=== PATIENT | female | born 1990 | race Caucasian/White ===

== ENCOUNTER 2024-12-08 11:27 | Emergency (ER) | payer OTHER, SELFPAY ==
[2024-12-08 11:29] VITALS: BP 105/71
[2024-12-08 11:51] LABS: % Basophils 0.4 % (0-2); % Eosinophils 0.3 % (0-6); % Immature Granulocytes 0.3 % (0-0.5); % Lymphocytes 5.9 % (20.5-51.1); % Monocytes 3.5 % (1.7-9.3); % Neutrophils 89.6 % (42.2-75.2); Absolute Lymphocytes 0.6 10^3/uL (1.2-3.4); Absolute Monocytes 0.3 10^3/uL (0.1-0.6); Absolute Neutrophils 8.5 10^3/uL (1.4-6.5); Hematocrit 43.1 % (37.0-47.0); Hemoglobin 15.3 g/dL (12.0-16.0); Mean Corp Hgb Conc. 35.5 g/dL (33.0-37.0); Mean Corpuscular Hgb 31.3 pg (27.0-31.0); Mean Corpuscular Volume 88.1 fL (81.0-99.0); Mean Platelet Volume 10.4 fL (7.4-10.4); Nucleated Red Blood Cells % 0 %; Platelet Count 210 10^3/uL (130-400); Red Blood Cell Count 4.89 10^6/uL (4.20-5.40); Red Cell Dist. Width 11.9 % (11.5-14.5); White Blood Cell Count 9.5 10^3/uL (4.8-10.8)
[2024-12-08 12:01] LABS: HCG, Serum Qualitative Screen Negative
[2024-12-08 12:02] LABS: ALT (SGPT) 17 U/L (0-35); AST (SGOT) 28 U/L (14-36); Albumin 4.7 g/dl (3.5-5.0); Alkaline Phosphatase 62 U/L (38-126); Blood Urea Nitrogen 8 mg/dl (7-17); Calcium 9.9 mg/dl (8.4-10.2); Carbon Dioxide 27 mmol/L (22-30); Chloride 106 mmol/L (98-107); Glucose 107 mg/dl (70-99); Lipase 55 U/L (23-300); Potassium 4.5 mmol/L (3.5-5.1); Sodium 141 mmol/L (135-145); Total Bilirubin 0.8 mg/dl (0.2-1.3); Total Protein 7.1 g/dl (6.3-8.2); eGFR > 60.00
--- NOTE | 2024-12-08 12:48 | ED.GENMED ---
History of Present Illness
General
Chief Complaint: Abdominal Pain
Source: patient
Exam Limitations: none
Time Seen by Provider: 12/08/24 12:18
Nursing documentation reviewed up to this point in time: agreed with
History of Present Illness
History of Present Illness:
Patient is a 33-year-old female with history of opiate dependence currently weaning off methadone presents to the ER for evaluation. She reports she started with UTI symptoms 3 to 4 days ago and [employer] [facility] and was prescribed Macrobid. She
has been taking Macrobid and feeling better but then today started with some burning with urination again. In addition she woke up this morning with lower abdominal pain. She saw her family doctor and she was tender in the right lower quadrant she
was sent here for further evaluation and possible workup for appendicitis.
Patient did take Plan B yesterday. She denies any abnormal discharge. She is 1 para 1. Last menstrual period 11/28. She denies any fever chills back pain.
Phy Exam
General Physical Exam
General Presentation: no apparent distress
General age: appears stated age
General Skin: warm and dry
General Habitus: normal
General Mental: alert
General Hydration: appears well hydrated
Gastrointestinal Exam
Gastrointestinal Exam: soft and other (mildly tender rlq )
Neurological Exam
Neurological Exam: alert and oriented x3
Musculoskeletal Exam
Musculoskeletal Exam: full ROM
Skin Exam
Skin Exam: normal color and warm/dry
Psychiatric Exam
Psychiatric Exam: normal mood/affect
Course
Orders/Labs/Results
Orders:
Orders
12/08/24 11:34
Test Result ONCE
12/08/24 11:37
Complete Blood Count/With Diff Urgent
Comprehensive Metabolic Panel Urgent
HCG, Serum Qualitative Screen Urgent
Lipase Urgent
12/08/24 12:33
UA Reflex to Culture [Urinalysis Reflex To Culture] Urgent
Date Specimen was Collected: 12/08/24
Time Specimen was Collected: 12:32
Urine Microscopic Reflex Cult Urgent
Urine Culture Urgent
SAYRA Source: U
Specimen Description:
Date Specimen was Collected: 12/08/24
Time Specimen was Collected: 12:32
12/08/24 13:01
CT Abd/pelvis W Iv Cont Urgent
Comment:
Reason For Exam: rlq pain
IV Insert/Care/Rem.- Treatment PRN
0.9% Sodium Chloride 1000 ml [Nss] 1,000 ml IV BOLUS
US Pelvis Only (non-obstetric) Urgent
Comment:
Reason For Exam: rlq pain
12/08/24 13:02
Ketorolac [Toradol] 15 mg IV NOW STA
Abnormal Lab Results
12/08/24 12/08/24
11:37 12:33
MCH 31.3 H pg
(27.0-31.0)
Absolute Neuts (auto) 8.5 H 10^3/uL
(1.4-6.5)
Absolute Lymphs (auto) 0.6 L 10^3/uL
(1.2-3.4)
Neutrophils % 89.6 H %
(42.2-75.2)
Lymphocytes % 5.9 L %
(20.5-51.1)
Glucose 107 H mg/dl
(70-99)
Urine Ketones 3+ A
(Negative)
Leukocyte Esterase Rfl 1+ A
(Negative)
12/08/24 11:37
12/08/24 11:37
Vital Signs
Initial and Last Documented VS:
Initial Vital Signs
Temp Pulse Resp BP Pulse Ox
98.5 F 81 16 105/71 96
12/08/24 11:29 12/08/24 11:29 12/08/24 11:29 12/08/24 11:29 12/08/24 11:29
Last Documented Vital Signs
Temp Pulse Resp BP Pulse Ox
98.5 F 81 16 105/71 96
12/08/24 11:29 12/08/24 11:29 12/08/24 11:29 12/08/24 11:29 12/08/24 11:29
MDM/Problems Addressed
MDM/Problems Addressed:
Prior to workup being completed patient apparently eloped. There is an IV catheter in the trash can with fresh appearing blood on trash can and on floor. Patient's labs unremarkable pelvic ultrasound negative. CAT scan shows mild diffuse
bladder wall thickening consistent with acute cystitis I would have recommended the patient continue on antibiotics though urine does not appear infected she did have recent UTI. There is incidental 2.5 cm right ovarian cyst and a little mild
circumferential wall thickening could be secondary to a colitis
*Radiology
Radiology exam reviewed: radiology read reviewed
*Pulse Oximetry
Patient hypoxic: no
*Critical Care Note
Total Time (30-74mins, 75-104mins- exclusive of procedures): Not Applicable
ED Attending Note
-
Portions of this chart may have been created with voice recognition software.� Occasional wrong word or��sound alike� substitutions may have occurred due to the inherent limitations of voice recognition software.
Discharge Plan
Departure
Patient Disposition: Elopement
Date of Disposition: 12/08/24
Time of Disposition: 16:32
Patient with high blood pressure during this ER visit?: No
Condition: Fair
Covid-19: Not Applicable
Discharge Problem:
Abdominal pain
Prescriptions:
No Action
trazodone 50 MG tablet
50 mg PO HS
drospirenone-ethinyl estradiol [Rena] 1 EACH tablet
1 ea PO DAILY
escitalopram oxalate 10 MG tablet
20 mg PO DAILY
bupropion HCl 150 MG tablet extended release 24 hr
150 mg PO DAILY
topiramate 50 MG tablet
50 mg PO DAILY
topiramate 50 MG tablet
50 mg PO DAILY Qty: 10 0RF
Referrals:
Trino Caballero MD [Family Provider] -
Interventions
Interventions:
*Risk Screen - Suicide Last Done: 12/08/24 11:29
*General Assessment Last Done: 12/08/24 11:29
*Neglect/Abuse Screening Last Done: 12/08/24 11:29
*ED- Fall Risk Assessment Last Done: 12/08/24 12:31
*ED COVID-19 Vaccine History Last Done: 12/08/24 12:31
*Nursing Disposition Last Done: 12/08/24 16:56
ZQ-Rsdyjw-Rhvlfsekaq Assessment Last Done: 12/08/24 12:31
Discharge Date and Time
Discharge Date/Time: 12/08/24 17:00
Print Language: SAMI
[2024-12-08 13:07] LABS: Urine Albumin Negative (Neg - Trace); Urine Bilirubin Negative (Negative); Urine Character Clear (Clear); Urine Color Amber; Urine Glucose Negative (Negative); Urine Ketone 3+ (Negative); Urine Leukocyte 1+ (Negative); Urine Nitrite Negative (Negative); Urine Occult Blood Negative (Negative); Urine Urobilinogen 1+ (Neg - 1+)
[2024-12-08] MEDS: TORADOL 15 MG IV (13:22)
[2024-12-08] MEDS: NSS 1000 IV (13:27)
[2024-12-08 13:59] VITALS: BMI 30.1
[2024-12-08 14:08] LABS: Urine Squamous Cell >30 /LPF (Few)
[2024-12-08 14:09] LABS: Urine Amorphous Seen; Urine Urothelial Cell 16-20 /LPF (FEW)
[2024-12-08 14:10] LABS: Urine Red Blood Cell 0-2 /HPF (0-2)
== END 2024-12-08 17:00 | disposition left against medical advice (07) ==
LOC: EMR 11:27
PROVIDERS: Emergency Medicine; Nurse Practitioner; EMERGENCY PHYSICIAN Student in an Organized Health Care Education/Training Program; FAMILY PHYSICIAN Family Medicine
DX: R10.31 Right lower quadrant pain (principal); R10.32 Left lower quadrant pain; N83.201 Unspecified ovarian cyst, right side; N30.00 Acute cystitis without hematuria; N39.0 Urinary tract infection, site not specified; Z53.29 Procedure and treatment not carried out because of patient's decision for other reasons; F11.20 Opioid dependence, uncomplicated; F41.9 Anxiety disorder, unspecified; F32.A Depression, unspecified; E03.9 Hypothyroidism, unspecified
CPT/HCPCS: 99284; 96361; 96374; 74177; 76856; 80053; 81003; 81015; 83690; 84703; 85025; 87086; Q9967